=== PATIENT | female | born 1965 | race Caucasian/White ===

== ENCOUNTER 2018-09-08 16:00 | Outpatient (REF) | payer MEDICAID, SELFPAY ==
--- NOTE | 2018-09-08 16:00 | PAPFT_PTH ---
PATIENT: Keyonna Infante LOC: [facility] U#:[id number] AGE/SX: 52/F ROOM: RE09/08/[address]: Vesta Keith APRN : 1965 BED: DIS: 09/08/2018 SPEC #: [id number] RECD: 09/09/18 12:52 STATUS: LILIANA REQ #: [id number] APRIL: 09/08/18 16:[address]: Vesta Keith DEPT: [facility] Cytology RECD BY: Kristin Leary Tissues: 1 - CX/ENDOCX FOR PAP SMEARS Procedures: PAP THIN PREP/UVM Screening HPV DNA PROBE Comments: [id number]
== END 2018-09-08 16:20 ==
LOC: LBN 16:00
DX: Z12.4 Encounter for screening for malignant neoplasm of cervix (principal); Z11.51 Encounter for screening for human papillomavirus (HPV)
CPT/HCPCS: 88142; 87624

== ENCOUNTER 2018-10-28 02:17 | Outpatient (CLI) | payer MEDICAID, SELFPAY ==
[2018-10-28 10:58] LABS: ALT 23 U/L (12-78); AST 17 U/L (15-37); Albumin 3.8 g/dL (3.4-5.0); Alkaline Phosphatase 88 U/L (46-116); Anion Gap 4.4 mmol/L (3-11); BUN 10 mg/dL (7-18); Bilirubin, Total 0.6 mg/dL (0.2-1.0); CO2 30.6 mmol/L (21.0-32.0); CREATININE 0.76 mg/dL (0.55-1.02); Calcium 8.5 mg/dL (8.5-10.1); Calculated LDL 143 mg/dL; Chloride 105 mmol/L (98-107); Cholesterol 221 mg/dL (50-200); Glucose 96 mg/dL (70-100); HDL Cholesterol 67 mg/dL (40-60); Potassium 4.5 mmol/L (3.5-5.1); Sodium 140 mmol/L (136-145); Total Protein 6.7 g/dL (6.4-8.2); Triglyceride 59 mg/dL (30-150)
== END 2018-10-28 02:37 ==
DX: E78.5 Hyperlipidemia, unspecified; K21.9 Gastro-esophageal reflux disease without esophagitis; K59.00 Constipation, unspecified
CPT/HCPCS: 36415; 80053; 80061; 83721

== ENCOUNTER 2018-12-22 01:09 | Outpatient (CLI) | payer MEDICAID, SELFPAY ==
--- NOTE | 2018-12-22 11:26 | DI.MAMMO_ITS ---
EXAM: MG MAMMO SCREENING CLINICAL HISTORY: SCREENING Z12.31. TECHNIQUE: Bilateral full field digital CC and MLO mammographic images were obtained with 3D tomosyn thesis and utilizing computer aided detection (CAD). COMPARISON: There are multiple priors with the most recent from 04/28/2017. FINDINGS: Masses/Architectural Distortion: None seen. Microcalcifications: No suspicious pleomorphic-type are seen. IMPRESSION: 1. No significant interval change with no specific features of malignancy noted. 2. Unless there is more urgent need, screening mammography is recommended, as per [place] [employer] guidelines. ACR BI-RAD Category- 1 Negative Breast Density - Category C - Heterogeneously dense The mammogram demonstrates the patient's breast tissue is dense. Dense breast tissue is very common a nd is not abnormal but dense breast tissue can make it harder to find cancer on a mammogram. Also, de nse breast tissue may increase their breast cancer risk. This information about the result of the [facility] mogram report was provided to the patient to raise their awareness. Use this report when you speak wi th the patient about their risks for breast cancer, which includes their family history. At that time , you may recommend for more screening tests (Ultrasound or MRI) as they might be useful based on the ir risk. A negative radiographic report should not delay biopsy if a dominant or clinically suspicious mass is present. Up to ten percent of cancers are not identified on mammography. A negative report may reinforce clinical impression. Adenosis and dense breasts may obscure an underlying neoplasm. False positive reports average 6 to 10%.
== END 2018-12-22 01:29 ==
DX: Z12.31 Encounter for screening mammogram for malignant neoplasm of breast (principal)
CPT/HCPCS: 77063; 77067

== ENCOUNTER 2019-03-15 04:17 | Outpatient (CLI) | payer MEDICAID, SELFPAY ==
[2019-03-17 11:29] LABS: HBs Antibody, Qual Negative (See Note); HBs Antibody, Quant <3.1 mIU/mL (See Note); Hepatitis B Core Antibody Negative (Negative); Hepatitis B surface Ag Negative (Negative); Hepatitis C Ab w Rflx HCV PCR Negative (Negative)
== END 2019-03-15 04:37 ==
PROVIDERS: Visit Provider Internal Medicine
DX: K64.9 Unspecified hemorrhoids (principal); Z83.79 Family history of other diseases of the digestive system; Z11.59 Encounter for screening for other viral diseases; Z01.84 Encounter for antibody response examination
CPT/HCPCS: 36415; 86704; 86706; 86803; 87340

== ENCOUNTER 2019-05-23 10:08 | Outpatient (CLI) | payer MEDICAID, SELFPAY ==
[2019-05-25 12:29] LABS: IgA 123 mg/dL (85-499); Tissue Transglutaminase IgA <1.2 U/mL (<4.0)
== END 2019-05-23 10:28 ==
PROVIDERS: Visit Provider Internal Medicine
DX: R19.7 Diarrhea, unspecified (principal)
CPT/HCPCS: 36415; 82784; 83516

== ENCOUNTER 2019-09-20 08:02 | Outpatient (CLI) | payer MEDICAID, SELFPAY ==
[2019-09-23 18:38] LABS: SARS-CoV-2 RNA Undetected (Undetected); SARS-CoV-2 Specimen Source Nasopharynx
== END 2019-09-20 08:22 ==
DX: Z11.59 Encounter for screening for other viral diseases (principal)
CPT/HCPCS: U0003

== ENCOUNTER 2019-10-26 03:36 | Outpatient (CLI) | payer MEDICAID, SELFPAY ==
[2019-10-26 09:50] LABS: ALT 21 U/L (14-59); AST 18 U/L (15-37); Albumin 3.8 g/dL (3.4-5.0); Alkaline Phosphatase 91 U/L (46-116); Anion Gap 4.7 mmol/L (3-11); BUN 14 mg/dL (7-18); Bilirubin, Total 0.5 mg/dL (0.2-1.0); CO2 31.3 mmol/L (21.0-32.0); CREATININE 0.79 mg/dL (0.55-1.02); Calcium 8.9 mg/dL (8.5-10.1); Chloride 103 mmol/L (98-107); Glucose 99 mg/dL (74-106); Potassium 4.3 mmol/L (3.5-5.1); Sodium 139 mmol/L (136-145); Total Protein 6.8 g/dL (6.4-8.2)
== END 2019-10-26 03:56 ==
DX: Z00.00 Encounter for general adult medical examination without abnormal findings (principal)
CPT/HCPCS: 36415; 80053

== ENCOUNTER 2019-12-26 00:31 | Outpatient (CLI) | payer MEDICAID, SELFPAY ==
--- NOTE | 2019-12-26 09:51 | DI.MAMMO_ITS ---
EXAM: MG MAMMO SCREENING CLINICAL HISTORY: screening,Z12.39 TECHNIQUE: Mammograms were interpreted according to the usual protocol including computer analysis w TNC CAD system, tomosynthesis and C-view imaging. COMPARISON: FINDINGS: The breasts are of heterogeneously increased radiodensity. There is no dominant mass or clumped micr ocalcification of either breast. Comparison with previous examinations including December 2018 and 2017 shows no gross interval change in appearance in comparison with the prior studies. IMPRESSION: No specific evidence of malignancy at this time. Routine screening examinations are suggested at yea rly intervals in this age group according to the ACS ACR guidelines. BI-RADS Category 1 - Negative Breast Density - Category C - Heterogeneously dense
== END 2019-12-26 00:51 ==
DX: Z12.31 Encounter for screening mammogram for malignant neoplasm of breast (principal)
CPT/HCPCS: 77063; 77067

== ENCOUNTER 2021-05-07 00:31 | Outpatient (CLI) | payer MEDICAID, SELFPAY ==
--- NOTE | 2021-05-07 08:00 | DI.MAMMO_ITS ---
Exam(s) MAMMO SCREENING EXAM: MAMMO SCREENING CLINICAL HISTORY: screening,z12.39. TECHNIQUE: Bilateral full field digital CC and MLO mammographic images were obtained with 3D tomosyn thesis and utilizing computer aided detection (CAD). COMPARISON: Prior mammograms were reviewed, the most recent being December 2019. FINDINGS: No new significant radiograph findings in left breast. In the right breast there is a lobulated noncalcified nodule measuring 7 by 5 millimeters, located 4 cm in from the nipple on the CC 3D view. Another adjacent smaller nodule seen at this level. There are no new malignant appearing microcalcification groups. There is no significant architectural distortion nor skin thickening-retraction. IMPRESSION: Right breast nodule as described above. Spot compression views and ultrasound recommended BI-RADS Category 0 - Assessment Incomplete: Need additional imaging evaluation Breast Density - Category B - Scattered areas of fibroglandular density Breast density Category C or D implies that the patient has dense breast tissue. Dense breast tissue can make it harder to find cancer on a mammogram. Dense breast tissue is also associated with an incr eased risk of breast cancer. This information about the result of the mammogram report was provided to the patient to raise their awareness. Use this report when you speak with the patient about their risks for breast cancer, which includes their family history. At that time, you may recommend additional screening tests (Ultrasoun d or MRI) as these tests may add significant information. A negative radiographic report should not delay biopsy if a dominant or clinically suspicious mass is present. Up to ten percent of cancers are not identified on mammography. A negative report may reinforce clinical impression. Adenosis and dense breasts may obscure an underlying neoplasm. False positive reports average 6 to 10%. Patient will receive a letter notifying them of these results.
== END 2021-05-07 00:51 ==
DX: Z12.31 Encounter for screening mammogram for malignant neoplasm of breast (principal); R92.8 Other abnormal and inconclusive findings on diagnostic imaging of breast
CPT/HCPCS: 77063; 77067

== ENCOUNTER 2021-05-15 00:13 | Outpatient (CLI) | payer MEDICAID, SELFPAY ==
--- NOTE | 2021-05-15 | DI.US_ITS ---
Exam(s) MG MAMMO SCREEN CALL BACK UNI US BREAST RT LIMITED EXAM: MG MAMMO SCREEN CALL BACK UNI CLINICAL HISTORY: RT BREAST NODULE. TECHNIQUE: Craniocaudal and mediolateral oblique Full Field Digital Mammography views with Computer Aided Diagnosis followed by Tomosynthesis and breast ultrasound. COMPARISON: MG MG MAMMO SCREENING from 12/26/2019 MG MG MAMMO SCREENING from 05/07/2021 US US BREAST RT LIMITED from 05/15/2021 07 May 2021 and exams from 2012 through 2019. FINDINGS: Mammography/Tomosynthesis: Masses: Persistence ovoid, lobulated, circumscribed low density lesion in the central breast tissue, likely in a lymph node. Retrospectively this was visible on previous exams and is unchanged in size f rom the most recent exams. Architectural distortion: None. Microcalcifictions: No suspicious pleomorphic-type are seen. Skin Thickening/Nipple Retraction: None. Right breast US: Echotexture: Normal appearance of the glandular tissue. Shadowing: No suspicious foci. Cyst: 5 x 3 x 6 millimeter cyst in the 5 o'clock position 1 cm from the nipple, superficial. This is not appear to account for the mammographic abnormality which is further posterior. Solid lesions: None seen. Ductal dilation: None. IMPRESSION: 1. No evidence of malignancy is noted. 2. Lobulated nodule on mammogram has a typical appearance of an intramammary lymph node.. 3. The findings were discussed with the patient on the date of the examination. BI-RADS Category 3 - 6 month - Probably Benign Finding: Recommend follow-up imaging in 6 months Breast Density - Category B - Scattered areas of fibroglandular density A negative radiographic report should not delay biopsy if a dominant or clinically suspicious mass is present. Up to ten percent of cancers are not identified on mammography. A negative report may reinforce clinical impression. Adenosis and dense breasts may obscure an underlying neoplasm. False positive reports average 6 to 10%. Patient will receive a letter notifying them of these results.
== END 2021-05-15 00:33 ==
DX: Z12.31 Encounter for screening mammogram for malignant neoplasm of breast (principal); R92.8 Other abnormal and inconclusive findings on diagnostic imaging of breast; N60.01 Solitary cyst of right breast; N64.59 Other signs and symptoms in breast
CPT/HCPCS: 76642; 77063; 77067

== ENCOUNTER 2021-05-31 04:06 | Outpatient (CLI) | payer MEDICAID, SELFPAY ==
[2021-05-31 11:46] LABS: ALT 138 U/L (14-59); AST 79 U/L (15-37); Albumin 3.8 g/dL (3.4-5.0); Alkaline Phosphatase 120 U/L (46-116); Anion Gap 4.6 mmol/L (3-11); BUN 13 mg/dL (7-18); Bilirubin, Total 0.5 mg/dL (0.2-1.0); CO2 31.4 mmol/L (21.0-32.0); CREATININE 0.8 mg/dL (0.55-1.02); Calcium 8.6 mg/dL (8.5-10.1); Chloride 104 mmol/L (98-107); Glucose 103 mg/dL (74-106); Potassium 4.7 mmol/L (3.5-5.1); Sodium 140 mmol/L (136-145); Total Protein 6.7 g/dL (6.4-8.2)
== END 2021-05-31 04:07 | disposition home or self-care (01) ==
LOC: LBO 04:06
DX: Z00.00 Encounter for general adult medical examination without abnormal findings (principal)
CPT/HCPCS: 36415; 80053

== ENCOUNTER 2021-06-28 02:31 | Outpatient (CLI) | payer MEDICAID, SELFPAY ==
[2021-06-28 10:29] LABS: ALT 98 U/L (14-59); AST 61 U/L (15-37)
[2021-07-01 10:37] LABS: Hepatitis C Ab w Rflx HCV PCR Negative (Negative)
== END 2021-06-28 02:32 | disposition home or self-care (01) ==
LOC: LBO 02:31
PROVIDERS: Family Medicine
DX: R79.89 Other specified abnormal findings of blood chemistry (principal); Z83.79 Family history of other diseases of the digestive system; Z11.59 Encounter for screening for other viral diseases
CPT/HCPCS: 36415; 86803; 84450; 84460

== ENCOUNTER 2021-07-18 03:03 | Outpatient (CLI) | payer MEDICAID, SELFPAY | END 2021-07-18 03:04 | disposition home or self-care (01) | LOC: LBO 03:03 ==

== ENCOUNTER 2021-07-23 01:58 | Outpatient (CLI) | payer MEDICAID, SELFPAY ==
[2021-07-23 17:09] LABS: ALT 100 U/L (14-59); AST 61 U/L (15-37)
[2021-07-25 11:17] LABS: Hepatitis B Surface Ag Negative (Negative)
[2021-07-25 11:29] LABS: HIV-1/2 Ag & Ab Screen Negative (Negative)
[2021-07-25 12:07] LABS: Hep A Total Ab w Rflx IgM Negative (Negative)
== END 2021-07-23 01:59 | disposition home or self-care (01) ==
LOC: LBO 01:58
PROVIDERS: Family Medicine
DX: R79.89 Other specified abnormal findings of blood chemistry (principal); Z11.59 Encounter for screening for other viral diseases; Z11.4 Encounter for screening for human immunodeficiency virus [HIV]
CPT/HCPCS: 36415; 86709; 87340; 87389; 84450; 84460

== ENCOUNTER → 2021-09-04 12:26 | Outpatient (CLI) | payer MEDICAID, SELFPAY ==
--- NOTE | 2021-09-04 07:30 | DI.RAD_ITS ---
Exam(s) XR ELBOW RT COMPLETE EXAM: XR ELBOW RT COMPLETE CLINICAL HISTORY: Chronic pain,S/P fall 04/2021,M25.521. TECHNIQUE: 2D digital imaging was performed. COMPARISON: No exams were available for comparison FINDINGS: 3 views There is no evidence of fracture or joint effusion and there is no swelling bursa of the olecranon bu rsa. Radial head and neck appear. Capitellum no loose intra-articular bodies. Epicondyles appear u nremarkable.. IMPRESSION: No significant osseous findings. No joint effusion. DATA REPOSITORY: RADIATION DOSE DELIVERED:
== END ==
DX: M25.521 Pain in right elbow (principal)
CPT/HCPCS: 73080

== ENCOUNTER → 2021-10-07 00:03 | Outpatient (CLI) | payer MEDICAID, SELFPAY ==
--- NOTE | 2021-10-07 07:00 | DI.US_ITS ---
Exam(s) US ABDOMEN EXAM: US ABDOMEN CLINICAL HISTORY: Mild RUQ discomfort with slight elevation in LFTs,r79.89,z83.79 TECHNIQUE: Ultrasound abdomen performed using standard protocol. COMPARISON: No exams were available for comparison FINDINGS: LIVER: Normal size and echogenicity. No focal liver lesions are seen.. GALLBLADDER: No evidence of cholelithiasis. No evidence of wall thickening. No pericholecystic fluid identified. WHITNEY'S SIGN: Negative. BILIARY SYSTEM: No intrahepatic or extrahepatic biliary ductal dilation. KIDNEYS: Kidneys are symmetric in size. No evidence of renal calculi. No evidence of hydronephrosis. No renal mass or cyst identified. PANCREAS: Normal where visualized. SPLEEN: Not enlarged. ABDOMINAL AORTA AND IVC: Visualized portions normal caliber. ASCITES: None seen. IMPRESSION: Normal sonographic appearance of the upper abdomen. DATA REPOSITORY:
== END ==
DX: R79.89 Other specified abnormal findings of blood chemistry (principal); Z83.79 Family history of other diseases of the digestive system
CPT/HCPCS: 76700

== ENCOUNTER → 2021-11-21 02:37 | Outpatient (CLI) | payer MEDICAID, SELFPAY ==
--- NOTE | 2021-11-21 07:30 | DI.MAMMO_ITS ---
Exam(s) MG MAMMO DIAGNOSTIC UNI US BREAST RT COMPLETE EXAM: MG MAMMO DIAGNOSTIC UNI -RIGHT AND COMPLETE RIGHT BREAST ULTRASOUND CLINICAL HISTORY: 3-6 mo f/u, ABNL MAMMO RT BREAST, Z09, R92.8. TECHNIQUE: Unilateral spot mammographic images were obtained with 3D tomosynthesis technique and uti lizing computer aided detection (CAD). COMPARISON: Prior mammograms were reviewed, the most recent being APRIL 2021. FINDINGS: DIAGNOSTIC RIGHT BREAST MAMMOGRAM: The right breast nodular density persists on dedicated spot compression views today. It has appearan ce of a probable benign intramammary lymph node. COMPLETE RIGHT BREAST ULTRASOUND: No solid or significant cystic lesions are seen in all 4 quadrants. This is further evidence that th e nodule described on the mammogram is a benign intramammary lymph node. IMPRESSION: Benign-appearing right breast findings as described above. Appropriate follow-up, as discussed by myself with the patient today, is repeat mammogram and ultraso und in 6 months which is time of her yearly bilateral screening in April 2022. The patient was informed of the findings and follow-up recommendations prior to leaving the [facility]. BI-RADS Category 3 - 6 month - Probably Benign Finding: Recommend follow-up mammography in 6 months Breast Density - Category B - Scattered areas of fibroglandular density Breast density Category C or D implies that the patient has dense breast tissue. Dense breast tissue can make it harder to find cancer on a mammogram. Dense breast tissue is also associated with an incr eased risk of breast cancer. This information about the result of the mammogram report was provided to the patient to raise their awareness. Use this report when you speak with the patient about their risks for breast cancer, which includes their family history. At that time, you may recommend additional screening tests (Ultrasoun d or MRI) as these tests may add significant information. A negative radiographic report should not delay biopsy if a dominant or clinically suspicious mass is present. Up to ten percent of cancers are not identified on mammography. A negative report may reinforce clinical impression. Adenosis and dense breasts may obscure an underlying neoplasm. False positive reports average 6 to 10%. Patient will receive a letter notifying them of these results.
== END ==
DX: R92.8 Other abnormal and inconclusive findings on diagnostic imaging of breast (principal); Z09 Encounter for follow-up examination after completed treatment for conditions other than malignant neoplasm
CPT/HCPCS: 76642; 77061; 77065; G0279

== ENCOUNTER 2021-12-06 01:55 | Outpatient (CLI) | payer MEDICAID, SELFPAY ==
[2021-12-06 10:00] LABS: ALT 40 U/L (14-59); AST 30 U/L (15-37); Albumin 3.7 g/dL (3.4-5.0); Alkaline Phosphatase 103 U/L (46-116); Anion Gap 5.8 mmol/L (3-11); BUN 11 mg/dL (7-18); Bilirubin, Total 0.5 mg/dL (0.2-1.0); CO2 32.2 mmol/L (21.0-32.0); CREATININE 0.9 mg/dL (0.55-1.02); Calcium 8.9 mg/dL (8.5-10.1); Chloride 103 mmol/L (98-107); Glucose 103 mg/dL (74-106); Sodium 141 mmol/L (136-145); TSH (W/Ref FT4) 1.33 uIU/mL (0.36-3.74); Total Protein 7.3 g/dL (6.4-8.2)
[2021-12-06 10:16] LABS: Calculated LDL 155 mg/dL (<100); Cholesterol 243 mg/dL (<200); HDL Cholesterol 68 mg/dL (40-60); Triglyceride 104 mg/dL (<150)
== END 2021-12-06 01:56 | disposition home or self-care (01) ==
LOC: LBO 01:55
PROVIDERS: Visit Provider Nurse Practitioner Family
DX: R53.83 Other fatigue (principal); Z13.220 Encounter for screening for lipoid disorders
CPT/HCPCS: 36415; 80053; 80061; 84443

== ENCOUNTER 2022-04-09 03:08 | Outpatient (CLI) | payer MEDICAID, SELFPAY ==
[2022-04-09 09:46] LABS: ALT 27 U/L (14-59); AST 23 U/L (15-37); Albumin 3.7 g/dL (3.4-5.0); Alkaline Phosphatase 114 U/L (46-116); Anion Gap 4.9 mmol/L (3-11); BUN 19 mg/dL (7-18); Bilirubin, Total 0.2 mg/dL (0.2-1.0); CO2 32.1 mmol/L (21.0-32.0); CREATININE 0.9 mg/dL (0.55-1.02); Calcium 8.6 mg/dL (8.5-10.1); Calculated LDL 177 mg/dL (<100); Chloride 103 mmol/L (98-107); Cholesterol 256 mg/dL (<200); Estimated GFR 75.03 (mL/min/1.73m2); Glucose 114 mg/dL (74-106); HDL Cholesterol 64 mg/dL (40-60); Potassium 4.1 mmol/L (3.5-5.1); Sodium 140 mmol/L (136-145); Total Protein 7.1 g/dL (6.4-8.2); Triglyceride 77 mg/dL (<150)
[2022-04-10 09:50] LABS: Hepatitis C Ab w Rflx HCV PCR Negative (Negative)
[2022-04-10 10:06] LABS: HIV-1/2 Ag & Ab Screen Negative (Negative)
== END 2022-04-09 03:09 | disposition home or self-care (01) ==
PROVIDERS: PCP Nurse Practitioner Family; Visit Provider Nurse Practitioner Family
DX: E78.5 Hyperlipidemia, unspecified (principal); R79.89 Other specified abnormal findings of blood chemistry; Z11.4 Encounter for screening for human immunodeficiency virus [HIV]; Z11.59 Encounter for screening for other viral diseases
CPT/HCPCS: 36415; 80053; 80061; 86803; 87389

== ENCOUNTER 2022-05-12 12:13 | Outpatient (REF) | payer MEDICAID, SELFPAY ==
--- NOTE | 2022-05-12 12:00 | LIPBX_PTH ---
PATIENT: Keyonna Infante LOC: [facility] U#:[id number] AGE/SX: 56/F ROOM: RE05/12/[address]: Eugene Lao MD : 1965 BED: DIS: 05/12/2022 SPEC #: [id number] RECD: 05/12/22 17:35 STATUS: LILIANA REQ #: [id number] APRIL: 05/12/22 12:[address]: Eugene Lao DEPT: Surgical Specimen RECD BY: Kristin Leary ENTERED: 05/12/22 17:36 SP TYPE: LIPBX OTHR DR: Riley Serrato, FISH Tissues: 1 - LIP BIOPSY/RESECTION Procedures: GROSS AND MICRO LEVEL 4 Comments: [id number]
== END 2022-05-12 12:14 | disposition home or self-care (01) ==
LOC: LBN 12:13
PROVIDERS: PCP Nurse Practitioner Family; Visit Provider Otolaryngology
DX: L82.1 Other seborrheic keratosis (principal); K13.0 Diseases of lips
CPT/HCPCS: 88305

== ENCOUNTER 2022-06-19 01:42 | Outpatient (CLI) | payer MEDICAID, SELFPAY ==
--- NOTE | 2022-06-19 13:34 | DI.MAMMO_ITS ---
Exam(s) MG MAMMO SCREENING EXAM: MG MAMMO SCREENING CLINICAL HISTORY: screening,z12.39 TECHNIQUE: Mammograms were interpreted according to the usual protocol including computer analysis w ith CAD system, tomosynthesis and C-view imaging. COMPARISON: MG MM DIGITAL SCR W MARCO ANTONIO BILATERAL from 02/06/2015 MG Screening Bilat Mammo from 04/28/2017 MG MG MAMMO SCREENING from 12/22/2018 MG MG MAMMO SCREENING from 12/26/2019 MG MG MAMMO SCREENING from 05/07/2021 US US BREAST RT LIMITED from 05/15/2021 MG MG MAMMO SCREEN CALL BACK UNI from 05/15/2021 US US BREAST RT COMPLETE from 11/21/2021 MG MG MAMMO DIAGNOSTIC UNI from 11/21/2021 FINDINGS: The breasts are composed of scattered fibroglandular densities, Breast Density category B. No suspicious masses or suspicious microcalcifications are seen. No change in the central nodule hav ing the appearance of an intramammary lymph node. Visible on exams back to 2018. No skin thickening or abnormal axillary lymph nodes are seen. There has been no significant change from prior exams. IMPRESSION: BI-RADS Category 1, Negative mammogram Yearly screening mammography is recommended. Breast Density - Category B, scattered fibroglandular densities. A negative radiographic report should not delay biopsy if a dominant or clinically suspicious mass is present. Up to ten percent of cancers are not identified on mammography. A negative report may reinforce clinical impression. Adenosis and dense breasts may obscure an underlying neoplasm. False positive reports average 6 to 10%. Patient will receive a letter notifying them of these results.
== END 2022-06-19 02:02 ==
LOC: DI 01:42
PROVIDERS: PCP Nurse Practitioner Family; Visit Provider Nurse Practitioner Family
DX: Z12.31 Encounter for screening mammogram for malignant neoplasm of breast (principal)
CPT/HCPCS: 77063; 77067

== ENCOUNTER 2023-06-19 01:28 | Outpatient (CLI) | payer MEDICAID, SELFPAY ==
[2023-06-19 11:30] LABS: ESR 5 mm/hr (0-30)
[2023-06-19 12:13] LABS: ALT 21 U/L (14-59); AST 19 U/L (15-37); Albumin 3.9 g/dL (3.4-5.0); Alkaline Phosphatase 105 U/L (46-116); Anion Gap 5.5 mmol/L (3-11); BUN 13 mg/dL (7-18); Bilirubin, Total 0.5 mg/dL (0.2-1.0); CO2 29.5 mmol/L (21.0-32.0); CREATININE 0.9 mg/dL (0.55-1.02); Calcium 8.8 mg/dL (8.5-10.1); Calculated LDL 180 mg/dL (<100); Chloride 105 mmol/L (98-107); Cholesterol 269 mg/dL (<200); Estimated GFR 74.57 (mL/min/1.73m2); Glucose 105 mg/dL (74-106); HDL Cholesterol 68 mg/dL (40-60); Sodium 140 mmol/L (136-145); TSH (W/Ref FT4) 1.28 uIU/mL (0.36-3.74); Total Protein 7.4 g/dL (6.4-8.2); Triglyceride 106 mg/dL (<150)
[2023-06-19 12:32] LABS: C-Reactive Protein < 0.50 mg/dL (<or=0.5)
[2023-06-19 17:48] LABS: Rheumatoid Factor <8.6 IU/mL (<12.0)
[2023-06-22 14:12] LABS: ANA Interpretation Negative (Negative)
== END 2023-06-19 01:29 | disposition home or self-care (01) ==
PROVIDERS: Obstetrics & Gynecology; PCP Nurse Practitioner Family; Visit Provider Family Medicine
DX: N95.1 Menopausal and female climacteric states (principal); M25.532 Pain in left wrist; R41.89 Other symptoms and signs involving cognitive functions and awareness
CPT/HCPCS: 80053; 80061; 85652; 84443; 86038; 86140; 86431

== ENCOUNTER 2023-09-10 00:58 | Outpatient (CLI) | payer MEDICAID, SELFPAY ==
[2023-09-12 15:16] LABS: Apolipoprotein A1, S 162 mg/dL (>=140); Apolipoprotein B, S 116 mg/dL (See Comment); Apolipoprotein B/A 1 ratio 0.7 (See Comment)
== END 2023-09-10 00:59 | disposition home or self-care (01) ==
PROVIDERS: PCP Family Medicine; Visit Provider Family Medicine
DX: E78.5 Hyperlipidemia, unspecified (principal); Z00.00 Encounter for general adult medical examination without abnormal findings
CPT/HCPCS: 36415; 82172

== ENCOUNTER 2024-04-12 14:38 | Outpatient (REF) | payer MEDICAID, SELFPAY ==
--- NOTE | 2024-04-12 14:30 | PAPFT_PTH ---
PATIENT: Keyonna Infante LOC: [facility] U#:[id number] AGE/SX: 58/F ROOM: RE04/12/[address]: Jazz Stone DO : 1965 BED: DIS: 04/12/2024 SPEC #: [id number] RECD: 04/12/24 17:38 STATUS: LILIANA REQ #: [id number] APRIL: 04/12/24 14:[address]: Jazz Stone DEPT: [facility] Cytology RECD BY: Kristin Leary ENTERED: 04/12/24 17:39 SP TYPE: PAPFT OTHR DR: Dominique Chan MD, DC Tissues: 1 - CX/ENDOCX FOR PAP SMEARS Procedures: PAP THIN PREP/UVM Screening HPV DNA PROBE Comments: [id number] (HPV 16 & 18/45)
== END 2024-04-12 14:39 | disposition home or self-care (01) ==
LOC: LBN 14:38
PROVIDERS: PCP Family Medicine; Visit Provider Obstetrics & Gynecology
DX: Z11.51 Encounter for screening for human papillomavirus (HPV) (principal); Z01.419 Encounter for gynecological examination (general) (routine) without abnormal findings
CPT/HCPCS: 88142; 87624

== ENCOUNTER 2024-05-26 01:37 | Outpatient (CLI) | payer MEDICAID, SELFPAY ==
--- NOTE | 2024-05-26 14:59 | DI.MAMMO_ITS ---
Exam(s) MAMMO SCREENING EXAM: MAMMO SCREENING CLINICAL HISTORY: screening. TECHNIQUE: Bilateral full field digital CC and MLO mammographic images were obtained with 3D tomosyn thesis and utilizing computer aided detection (CAD). COMPARISON: Prior mammograms were reviewed. Ultrasound 11/21/2021 was reviewed. FINDINGS: There has been no significant change in the appearance and distribution of the fibroglandular tissue. Small benign-appearing nodular density mid aspect of the right breast on CC view is again noted and h as appearance of a benign intramammary lymph node. There are no new spiculated masses nor new malignant appearing microcalcification groups. There is no significant architectural distortion nor skin thickening-retraction. IMPRESSION: Stable benign findings. No radiographic evidence of malignancy. BI-RADS Category 2 - Benign Findings Breast Density - Category B - Scattered areas of fibroglandular density Breast density Category C or D implies that the patient has dense breast tissue. Dense breast tissue can make it harder to find cancer on a mammogram. Dense breast tissue is also associated with an incr eased risk of breast cancer. This information about the result of the mammogram report was provided to the patient to raise their awareness. Use this report when you speak with the patient about their risks for breast cancer, which includes their family history. At that time, you may recommend additional screening tests (Ultrasoun d or MRI) as these tests may add significant information. A negative radiographic report should not delay biopsy if a dominant or clinically suspicious mass is present. Up to ten percent of cancers are not identified on mammography. A negative report may reinforce clinical impression. Adenosis and dense breasts may obscure an underlying neoplasm. False positive reports average 6 to 10%. Patient will receive a letter notifying them of these results.
== END 2024-05-26 01:57 ==
LOC: DI 01:37
PROVIDERS: PCP Family Medicine; Visit Provider Obstetrics & Gynecology
DX: Z12.31 Encounter for screening mammogram for malignant neoplasm of breast (principal); R92.323 Mammographic fibroglandular density, bilateral breasts; D24.1 Benign neoplasm of right breast
CPT/HCPCS: 77063; 77067

== ENCOUNTER 2024-07-21 11:28 | Outpatient (CLI) | payer MEDICAID, SELFPAY ==
[2024-07-21 12:01] LABS: ALT 25 U/L (14-59); AST 19 U/L (15-37); Albumin 3.8 g/dL (3.4-5.0); Alkaline Phosphatase 117 U/L (46-116); Anion Gap 6.3 mmol/L (3-11); BUN 15 mg/dL (7-18); Bilirubin, Total 0.5 mg/dL (0.2-1.0); CO2 31.7 mmol/L (21.0-32.0); CREATININE 0.8 mg/dL (0.55-1.02); Calcium 8.7 mg/dL (8.5-10.1); Calculated LDL 176 mg/dL (<100); Chloride 105 mmol/L (98-107); Cholesterol 255 mg/dL (<200); Estimated GFR 85.35 (mL/min/1.73m2); Glucose 105 mg/dL (74-106); HDL Cholesterol 65 mg/dL (>or=50); Magnesium 2.2 mg/dL (1.8-2.4); Potassium 4.3 mmol/L (3.5-5.1); Sodium 143 mmol/L (136-145); Total Protein 7.2 g/dL (6.4-8.2); Triglyceride 73 mg/dL (<150)
== END 2024-07-21 11:29 | disposition home or self-care (01) ==
LOC: LBO 11:29
PROVIDERS: PCP Family Medicine; Visit Provider Family Medicine
DX: Z00.00 Encounter for general adult medical examination without abnormal findings (principal); I10 Essential (primary) hypertension
CPT/HCPCS: 36415; 80053; 80061; 83735

== ENCOUNTER 2024-08-22 02:33 | Outpatient (CLI) | payer MEDICAID, SELFPAY ==
--- NOTE | 2024-08-22 07:15 | DI.DEXA_ITS ---
Exam(s) XR DEXA BONE DENSITY W/WO MARK EXAM: XR DEXA BONE DENSITY W/WO MARK CLINICAL HISTORY: SCREENING FOR OSTEOPOROSIS IN POSTMENOPAUSAL STATUS,Z78.0 TECHNIQUE: COMPARISON: No exams were available for comparison FINDINGS: Lateral Spine Image: Unremarkable. No compression deformities identified. Left hip: Total T-Score: -0.9 Total Z-Score: 0.0 T- and Z-scores: Within normal limits. Lumbar Spine: Total T-Score: -2.6 Total Z-Score: -1.3 T- and Z-scores: Findings are consistent with osteoporosis. IMPRESSION: Osteoporosis in the lumbar spine.
== END 2024-08-22 02:53 ==
LOC: DI 02:33
PROVIDERS: PCP Family Medicine; Visit Provider Family Medicine
DX: Z78.0 Asymptomatic menopausal state (principal); Z13.820 Encounter for screening for osteoporosis; M81.0 Age-related osteoporosis without current pathological fracture
CPT/HCPCS: 77080